=== PATIENT | male | born 1990 | race American Indian/Alaskan Native ===

== ENCOUNTER 2021-01-04 01:04 | Emergency (ER) | payer MEDICARE ==
[2021-01-04 01:14] VITALS: BP 152/91
--- NOTE | 2021-01-04 01:28 | Emergency Department Report ---
ED GI Bleed HPI - General Chief complaint: Rectal Pain Stated complaint: HEMORRHOIDS Time Seen by Provider: 01/04/21 01:18 Source: patient Mode of arrival: Ambulatory Limitations: No Limitations - History of Present Illness Initial comments: Patient presents with rectal pain and bright red blood per rectum. He believes he has a hemorrhoid. A couple days ago he noticed this. It is gotten worse. Has had more pain. He has had swelling in the area. There is no history of direct trauma. There is no bleeding from other sites. Has no fevers or chills. Patient denies cough or congestion. Has not been particularly constipated lately. He has never had a problem like this before. He noticed it after taking a shower. - Related Data Previous Rx's Medication Instructions Recorded Last Taken Type Docusate Sodium [Colace] 100 mg PO BID #20 capsule 01/04/21 Unknown Rx Hydrocortisone [Anusol-Hc 2.5% TOP 30 gm RC BID #30 cream..g. 01/04/21 Unknown Rx CREAM] Allergies Allergy/AdvReac Type Severity Reaction Status Date / Time No Known Allergies Allergy Verified 01/04/21 01:15 ED Review of Systems ROS: Stated complaint: HEMORRHOIDS Other details as noted in HPI Comment: All other systems reviewed and negative Constitutional: denies: fever Eyes: denies: eye pain ENT: denies: throat pain Respiratory: denies: cough Cardiovascular: denies: chest pain Gastrointestinal: denies: abdominal pain Genitourinary: denies: hematuria Skin: denies: rash Hematological/Lymphatic: denies: easy bruising ED Past Medical Hx - Past Medical History Previous Medical History?: No - Surgical History Past Surgical History?: No - Family History Family history: no significant - Social History Smoking Status: Current Some Day Smoker Substance Use Type: None - Medications Home Medications: Home Medications Medication Instructions Recorded Confirmed Last Taken Type Docusate Sodium [Colace] 100 mg PO BID #20 capsule 01/04/21 Unknown Rx Hydrocortisone [Anusol-Hc 2.5% TOP 30 gm RC BID #30 cream..g. 01/04/21 Unknown Rx CREAM] ED Physical Exam - General Limitations: No Limitations, Other (Pulse ox noted and normal) General appearance: alert, in no apparent distress - Head Head exam: Present: atraumatic, normocephalic - Eye Eye exam: Present: normal appearance, EOMI - ENT ENT exam: Present: mucous membranes moist - Neck Neck exam: Present: normal inspection - Respiratory Respiratory exam: Present: normal lung sounds bilaterally. Absent: respiratory distress - Cardiovascular Cardiovascular Exam: Present: regular rate, normal rhythm - GI/Abdominal GI/Abdominal exam: Present: soft. Absent: distended, tenderness - Rectal Rectal exam: Present: hemorrhoids (Partially thrombosed external) - Extremities Exam Extremities exam: Present: normal capillary refill - Back Exam Back exam: Present: full ROM - Neurological Exam Neurological exam: Present: alert, oriented X3, normal gait - Psychiatric Psychiatric exam: Present: normal affect, normal mood - Skin Skin exam: Present: warm, dry ED Course Vital Signs 01/04/21 01:11 Temperature 98.1 F Pulse Rate 81 Respiratory 17 Rate Blood Pressure 152/91 O2 Sat by Pulse 96 Oximetry - Reevaluation(s) Reevaluation #1: 01/04/21 01:31 Patient was seen and discharged ED Medical Decision Making - Medical Decision Making Patient presents with rectal pain and bright red blood per rectum. He has a partially thrombosed external hemorrhoid. There would be no indication for excision. This is partially thrombosed. There is no evidence of perianal abscess or infection. He does not have any history of trauma. He was treated symptomatically and referred for outpatient evaluation. Critical Care Time: No Critical care attestation.: If time is entered above; I have spent that time in minutes in the direct care of this critically ill patient, excluding procedure time. ED Disposition Clinical Impression: External hemorrhoid, thrombosed Disposition: 01 HOME / SELF CARE / HOMELESS Is pt being admited?: No Condition: Stable Instructions: Hemorrhoids, Nonsurgical Procedures for Hemorrhoids Additional Instructions: APPLY WARM COMPRESSES. DRINK WATER. HAVE A HIGH FIBER DIET. RETURN FOR PROBLEMS. SEE THE REFERRAL DOCTOR FOR RECHECK. Prescriptions: Hydrocortisone [Anusol-Hc 2.5% TOP CREAM] 30 gm RC BID #30 cream..g. Docusate Sodium [Colace] 100 mg PO BID #20 capsule Referrals: PRIMARY CARE, [Referring] - 3-5 Days ELIJAH LAWSON MD [Staff Physician] - 3-5 Days TIBURCIO NARANJO MD [Staff Physician] - 3-5 Days
[2021-01-04] MEDS ORDERED: HYDROCORTISONE 1% CREAM 28.4GM TP ONE (01:48)
== END 2021-01-04 01:31 | disposition home or self-care (01) ==
LOC: ED 01:04
DX: K64.5 Perianal venous thrombosis (principal); F17.200 Nicotine dependence, unspecified, uncomplicated; Z79.899 Other long term (current) drug therapy
CPT/HCPCS: 99282; A6250